=== PATIENT | female | born 1955 | race Caucasian/White ===

== ENCOUNTER → 2018-05-10 | Outpatient (CLI) | payer OTHER ==
--- NOTE | 2018-05-10 09:07 | Diagnostic Imaging Report ---
EXAMINATION: ABDOMEN-1VIEW (KUB) INDICATION: Postinfective urethral stricture COMPARISON: None FINDINGS: There is a nonobstructive bowel gas pattern. No evidence of free intraperitoneal air. Bowel gas partially obscures visualization of the kidney, however there are no definite urinary stones. No acute osseous abnormality. IMPRESSION: Unremarkable abdominal radiograph. Signed by: Dr. Jackelny Jordan MD on 05/10/2018 9:04 AM
--- NOTE | 2018-05-10 09:40 | Diagnostic Imaging Report ---
EXAM: Renal Ultrasound and pelvic ultrasound (non-OB) INDICATION: Mixed incontinence COMPARISON: KUB 05/10/2018. TECHNIQUE: Transverse and longitudinal images of the kidneys and bladder were obtained. FINDINGS: Right Kidney: Length: Measures 11.3 x 5.1 x 4.4 cm Appearance: Mildly increased echogenicity. Collecting system: No hydronephrosis Stones: None Cyst/Mass: None Left Kidney: Length: Measures 9.4 x 5.8 x 4.7 cm Appearance: Mildly increased echogenicity. Collecting system: No hydronephrosis Stones: None Cyst/Mass: None Bladder: Unremarkable in appearance. Bilateral ureteral jets are present. IMPRESSION: No evidence of hydronephrosis or stone. Mildly increased bilateral renal echogenicity, which could reflect medical renal disease. Signed by: Dr. Jackelyn Jordan MD on 05/10/2018 9:37 AM
== END ==
LOC: US 08:14
PROVIDERS: ATTEND Urology
DX: N39.46 Mixed incontinence (principal); N35.12 Postinfective urethral stricture, not elsewhere classified, female; Z84.1 Family history of disorders of kidney and ureter
CPT/HCPCS: 74018; 76770; 76857